=== PATIENT | female | born 1980 | race Caucasian/White ===

== ENCOUNTER → 2022-04-09 15:43 | Outpatient (CLI) | payer OTHER, SELFPAY | PROVIDERS: PCP Family Medicine; Visit Provider Student in an Organized Health Care Education/Training Program | DX: R30.0 Dysuria (principal) | CPT/HCPCS: 87086 ==

== ENCOUNTER → 2023-08-14 08:51 | Outpatient (CLI) | payer OTHER, SELFPAY ==
--- NOTE | 2023-08-14 08:52 | DI.US.S_ITS ---
ULTRASOUND OF LEFT BREAST: 08/14/2023 CLINICAL: Hx DCIS, mastectomy with tissue implants. Pain 9:00 4cmfn. No prior exams were available for comparison. Real-time ultrasound of the left breast was performed. Gentile scale images of the real-time examination were reviewed. No significant abnormalities were seen sonographically in the left chest area of concern. Patient is status post bilateral mastectomy with flap reconstruction. IMPRESSION: BENIGN No significant abnormalities were seen sonographically in the left chest area of concern. Patient is status post bilateral mastectomy with flap reconstruction. 9:00 4cm from nipple and lower inner quadrants were scanned. If further clinical concern, consider CT or MR for more advanced imaging if desired. This exam was interpreted at Station ID: [id number]. Electronically Signed By: Sadi Burgess M.D. lc/:08/14/2023 09:32:15 letter sent: Clinical Evaluation Ultrasound BI-RADS: 2 Benign
== END ==
LOC: US 08:51
PROVIDERS: PCP Family Medicine; Referring Provider Physician Assistant; Visit Provider Physician Assistant
DX: N64.4 Mastodynia (principal); Z86.000 Personal history of in-situ neoplasm of breast; Z90.13 Acquired absence of bilateral breasts and nipples; Z98.82 Breast implant status
CPT/HCPCS: 76642